=== PATIENT | male | born 1950 | race Caucasian/White ===

== ENCOUNTER 2017-11-26 16:29 | Outpatient (CLI) | payer MEDICARE ==
--- NOTE | 2017-11-26 16:46 | RAD ---
TWO VIEW CHEST SERIES: Indication: Viral infection with symptoms for three weeks. FINDINGS: There is no lobar consolidation, effusion, or pneumothorax. Cardiac silhouette is normal in size. Oss eous structures are intact. IMPRESSION: No focal consolidation. POS: [facility]
== END 2017-11-26 16:30 | disposition home or self-care (01) ==
LOC: SCSRAD 16:29
PROVIDERS: ATTEND Family Medicine
DX: R09.89 Other specified symptoms and signs involving the circulatory and respiratory systems (principal)
CPT/HCPCS: 71046

== ENCOUNTER 2018-02-25 09:46 | Outpatient (CLI) | payer MEDICARE ==
[2018-02-25 10:56] LABS: #Basophils 0.1 thou/uL (0.0-0.2); #Eosinphils 0.3 thou/uL (0.0-0.7); #Lymphocytes 3.3 thou/uL (1.20-3.40); #Monocytes 0.7 thou/uL (0.11-0.59); #Neutrophils 5.3 thou/uL (1.40-6.50); %Basophils 0.9 % (0.0-1.0); %Eosinophils 3.4 % (0.0-10.0); %Lymphocytes 34.1 % (21.0-51.0); %Monocytes 6.8 % (0.0-10.0); %Neutrophils 54.9 % (42.0-75.0); Hemoglobin 16.3 g/dL (14.0-18.0); Mean Corpuscular HGB CONC 32.8 g/dL (32.0-36.0); Mean Corpuscular Hemoglobin 29.8 pg (27.0-31.0); Mean Platelet Volume 8.4 fL (7.4-10.4); Platelet Count 247 thou/uL (130-400); RBC Distribution Width 11.9 % (11.5-14.5); Red Blood Cell (RBC) Count 5.46 mill/uL (4.70-6.10); White Blood Cell (WBC) Count 9.6 thou/uL (4.8-10.8)
[2018-02-25 11:20] LABS: Anion Gap 12 mmol/L (10-20); BUN (Urea Nitrogen) 16 mg/dL (8.4-25.7); Calc. Creatinine Clearance 0 mL/min (70-130); Calcium 8.8 mg/dL (7.8-10.44); Carbon Dioxide 28 mmol/L (23-31); Chloride 100 mmol/L (98-107); Estimated GFR-MDRD 72; Glucose 119 mg/dL (80-115); Potassium 3.6 mmol/L (3.5-5.1); Sodium 136 mmol/L (136-145)
--- NOTE | 2018-03-03 08:37 | EKG ---
Test Reason : Blood Pressure : / mmHG Vent. Rate : 070 BPM Atrial Rate : 070 BPM P-R Int : 150 ms QRS Dur : 100 ms QT Int : 428 ms P-R-T Axes : 057 107 013 degrees QTc Int : 462 ms Poor data quality, interpretation may be adversely affected Normal sinus rhythm Rightward axis Inferior infarct , age undetermined Cannot rule out Anterior infarct , age undetermined Abnormal ECG No previous ECGs available Confirmed by AYDEE WOLF, BUTCH ([id number]) on 03/03/2018 8:37:02 AM Referred By: ZI Confirmed By:BUTCH BAJWA MD
== END 2018-02-25 09:47 | disposition home or self-care (01) ==
LOC: LABBT 09:46
PROVIDERS: ATTEND Orthopaedic Surgery
DX: Z01.818 Encounter for other preprocedural examination (principal); S83.207A Unspecified tear of unspecified meniscus, current injury, left knee, initial encounter
CPT/HCPCS: 80048; 85025; 93005; 93010

== ENCOUNTER 2018-03-04 05:34 | Day surgery (SDC) | payer MEDICARE ==
[2018-02-25 10:10] VITALS: BMI 37.3
[2018-03-04] MEDS ORDERED: CEFAZOLIN/Water 2 GM/20 ML SYRINGE ONE (06:28)
[2018-03-04] MEDS ORDERED: PROPOFOL 20 ML ONE (06:35)
[2018-03-04] MEDS ORDERED: HYDROmorphone 0.5 MG/0.5 ML SYRINGE ONE (07:46)
[2018-03-04] MEDS ORDERED: Lidocaine 2% w/Epinephrine 1:200K 20 ML VIAL ONE (11:59)
[2018-03-04] MEDS ORDERED: Bupivacaine HCl 0.5%/Epinephrine 1:200,000/PF 30 ml Vial ONE (11:59)
[2018-03-04] MEDS ORDERED: ePHEDrine/0.9% NaCl/PF SYRINGE 50 mg/10 ml ONE (14:04)
[2018-03-04] MEDS ORDERED: PROPOFOL 200 MG/20 ML VIAL ONE (14:04)
[2018-03-04] MEDS ORDERED: Dexamethasone 20 MG/5 ML VIAL ONE ×2 (14:04)
[2018-03-04] MEDS ORDERED: Lidocaine 1% PF 5 ML VIAL ONE (14:04)
--- NOTE | 2018-03-05 06:57 | OP ---
DATE OF PROCEDURE: 03/04/2018 PREOPERATIVE DIAGNOSIS: Left knee complex tear of the medial meniscus. POSTOPERATIVE DIAGNOSIS: Left knee complex tear of the medial meniscus. PROCEDURE PERFORMED: Left knee arthroscopy with partial medial meniscectomy. SURGEON: Henry Patricia M.D. PHLEBOTOMY LAB ASSISTANT: None. BLOOD LOSS: Minimal. COMPLICATIONS: None. ANESTHESIA: He did have general anesthetic as well as a local block. DISPOSITION: He did go to the recovery room in stable condition. INDICATIONS: A 67-year-old male who has been having problems with pain, catching, and swelling and a t this time opted to have surgery on the knee. OPERATIVE PROCEDURE: After all appropriate consent forms were explained and signed, he was taken to the operating room and at this time was given a general anesthetic. Once local anesthesia was approp riate, a tourniquet was placed on the left thigh and leg was placed in an arthroscopic leg eng. T he limb was then prepped and draped in standard surgical fashion. Limb was exsanguinated and tourniq uet was taken 300 mmHg. An inferolateral portal was established, the scope was placed into the knee joint. A needle localization technique was then used to make a medial working portal. Diagnostic ar throscopy commenced in the notch, the ACL and PCL were probed and found to be intact. The medial com partment showed the tibial plateau to be in good condition. There was some grade 2 and 3 changes on the medial femoral condyle towards the area of the notch. There were some small unstable chondral fl aps which were gently removed with the shaver and the remaining portion of the medial femoral condyle was overall in good condition. There was a complex tear of the body and the posterior horn of the m edial meniscus and a partial medial meniscectomy was performed using meniscal biter and shaver. Linda ining meniscus was intact. The lateral compartment was in good condition. Gutters were swept throug h and no loose bodies were noted. The patellofemoral joint showed the patella to be in good conditio n; however, the trochlea had a near grade 4 changes. No unstable chondral flaps were noted. At this time, scope was removed, knee was drained. Portals were closed with simple nylon stitch. Bulky nithya rile dressing was applied and the tourniquet let down. The patient's toes pinked up nicely. He was awakened and taken to the recovery room in stable condition. All counts were correct at the end of t he case and he did receive preoperative IV antibiotics.
== END 2018-03-04 11:10 | disposition home or self-care (01) ==
LOC: SDC 05:34
PROVIDERS: ATTEND Orthopaedic Surgery
PROC: 0SBD4ZZ Excision of Left Knee Joint, Percutaneous Endoscopic Approach (ICD-10-PCS; principal; 2018-03-04)
DX: S83.232A Complex tear of medial meniscus, current injury, left knee, initial encounter (principal); I10 Essential (primary) hypertension; K21.9 Gastro-esophageal reflux disease without esophagitis; E29.1 Testicular hypofunction; R73.03 Prediabetes; Z98.890 Other specified postprocedural states
CPT/HCPCS: 29881; 97139; G8978; G8979; G8980; J0670; J1100; J1170; J2001; J2704